=== PATIENT | female | born 1955 | race Hispanic/Latino ===

== ENCOUNTER 2017-06-18 11:15 | Inpatient (IN) | payer BC ==
[~2017-06-18] VITALS: Ht 160 cm; Wt 84.4 kg
[2017-07-12] MEDS ORDERED: VITAMIN D2 PO (11:27)
[2017-07-12] MEDS ORDERED: PROTONIX40 M2 PO (11:28)
[2017-07-12] MEDS ORDERED: MOTRIN IB200 MG PO (11:29)
[2017-07-19] VITALS (9 sets, daily range): BP systolic 115–130; BP diastolic 58–75
[2017-07-19 06:31] LABS: HEMOGLOBIN 13.8 g/dl (12.0-16.0); IMMATURE GRANULOCYTES 0.1 % (0.0-1.0); MEAN CORPUSCULAR HGB 29.3 pG CALC (26.0-32.0); MEAN CORPUSCULAR HGB CONC 33.7 g/L CALC (32.0-36.0); NEUT# 3.29 thou/uL (2.00-7.15); RED BLOOD COUNT 4.71 mill/uL (4.20-5.60); RED CELL DISTRI WIDTH 12.5 % (11.5-15.5)
[2017-07-19 06:50] LABS: ANION GAP 14 (6-22 (CALC)); BUN 14 mg/dL (7-17); BUN/CREATININE RATIO 18 (12-20 (CALC)); CARBON DIOXIDE 26 mmol/l (22-30); CHLORIDE 110 mmol/l (95-108); CREATININE 0.7 mg/dL (0.5-1.0); GFR > 60 ML/MIN (>=60 (CALC)); GFR FOR AFR.AMER. > 60 ML/MIN (>=60 (CALC)); POTASSIUM 3.7 mmol/l (3.5-5.1); SODIUM 147 mmol/l (137-146)
[2017-07-19 06:52] LABS: ACT PARTIAL THROMBO TIME 26.2 SECONDS (20.0-32.5); PROTHROMBIN TIME 10.7 SECONDS (9.0-12.5)
--- NOTE | 2017-07-19 11:48 | NUR ---
PT ARRIVED TO FLOOR AT 1130 VIA BED ACCOMPANIED BY OR STAFF X 2. PT DROWSY. RESONDS TO VERBAL STIMULI. SNORING. ANSWERS WHEN QUESTIONED. REPORTS MILD PAIN TO RIGHT KNEE, UNABLE TO GIVE A NUMBER ON THE PAIN SCALE AT THIS TIME. SCD APPLIED TO LEFT LEG. O2 @ 3L VIA NC TO MAINTAIN O2 SATS. LR INFUSING AT 100 ML/HE VIA #20 LH. IVS FREE FROM REDNESS, SWELLING. PLAN OF CARE DISCUSSED. REPORTING OF CONCERNS ENCOURAGED. FALL PRECAUTIONS REINFORCED. CALL LIGHT REVIEWED AND IN REACH. REINFORCEMENT NEEDED FOR INFORMATION R/T DROWSINESS. MULTIPLE FAMILY MEMBERS AT BEDSIDE.
--- NOTE | 2017-07-19 14:01 | NUR ---
PHYSICAL THERAPY IN W/ PT.
--- NOTE | 2017-07-19 14:52 | NUR ---
PT REPORTS NAUSEA. ZOFRAN IV ADMINISTERED. MULTIPLE FAMILY MEMBERS STILL AT BEDSIDE. PIZZA BOXES STACKED IN ROOM, REMOVAL OF FOOD TO IMPROVE NAUSEA SUGGESTED. WILL CONTINUE TO MONITOR.
--- NOTE | 2017-07-19 14:53 | NUR ---
IS AT BEDSIDE. PT REFUSING USE AT THIS TIME R/T NAUSEA.
--- NOTE | 2017-07-19 15:59 | NUR ---
PT REPORTS MODERATE RIGHT KNEE PAIN. MORPHINE IV ADMINISTERED. ONLY 1 FAMILY MEMBER AT BEDSIDE NOW. MUCH CALMER ENVIRONMENT.
--- NOTE | 2017-07-19 16:56 | NUR ---
PT VOMITED 100 ML DARK YELLOW EMESIS. INCONTINENT OF URINE AT THIS TIME. PT UP TO BSC TO FINISH EMPTYING BLADDER, 300 ML CLEAR YELLOW URINE. PT CLEANED, LINENS CHANGED. PT BACK TO BED. RIGHT LEG ELEVATED ON 2 PILLOWS. SCD TO LEFT LEG. O2 @ 3L VIA NC.
--- NOTE | 2017-07-19 19:05 | NUR ---
REPORT RECEIVED FROM MARV ALICIA;PT RESTING IN SEMI FOWLERS POSITION WITH FAMILY AT BEDSIDE;POC DISCUSSED;PT ENCOURAGED TO VERBALIZE CONCERNS;PT DENIES ANY NEEDS AT THIS TIME;ICE CHIPS PROVIDED PER REQUEST;CALL LIGHT WITHIN REACH;WILL CONTINUE TO MONITOR
--- NOTE | 2017-07-19 20:30 | NUR ---
PT RESTING IN SEMI FOWLERS POSITION COMPLAINING OF RIGHT KNEE PAIN RATING 7/10 ON THE PAIN SCALE AND REQUEST PAIN MEDICATION;MORPHINE 2MG IVP ADMINISTERED,WILL MONITOR FOR EFFECTIVENESS;#20G TO LEFT HAND INFUSING LR @ 100ML/HR,SITE APPEARS HEALTHY AND FREE FROM EDEMA;ASSESSMENT COMPLETED;RESPIRATIONS EVEN AND UNLABORED ON RA,CLEAR LUNG SOUNDS;ABDOMEN SOFT WITH X4 HYPOACTIVE BOWEL SOUNDS;STRONG PEDAL PULSES;SCD NOTED TO LEFT LEG;RIGHT LEG ELEVATED ON X2 PILLOWS,DRESSING CDI;CAP REFILL LESS THAN 3 SECONDS;I.S. AT BEDSIDE AND PT ENCOURAGED TO USE X10 PER HOUR,GOAL SET TO 1500;PT DENIES ANY OTHER NEEDS AT THIS TIME;PT ENCOURAGED TO CALL FOR ASSISTANCE IF NEEDED;CALL LIGHT WITHIN REACH;WILL CONTINUE TO MONITOR
--- NOTE | 2017-07-20 00:05 | NUR ---
PT APPEARS TO BE SLEEPING IN SUPINE POSITION WITH FAMILY AT BEDSIDE;WAKES EASILY;PT REPORTS PAIN LEVEL TO BE 3/10 ON THE PAIN SCALE;IV SITE PATENT;RIGHT LEG REMAINS ELEVATED ON X2 PILLOWS;PT DENIES ANY NEEDS AT THIS TIME;ENCOURAGED TO CALL FOR ASSISTANCE IF NEEDED;WILL CONTINUE TO MONITOR
--- NOTE | 2017-07-20 01:40 | NUR ---
PT COMPLAINS OF RIGHT KNEE PAIN RATING 7/10 ON THE PAIN SCALE AND REQUESTS PAIN MEDICATION;PT MEDICATED WITH PERCOCET 10/325MG PO 1 COMBO,WILL MONITOR FOR EFFECTIVENESS;PT AMBULATED WITH 1 PERSON ASSIST AND ASSISTED DEVICE TO BEDSIDE COMMODE AND VOIDED CLEAR/YELLOW URINE;PT RE-POSITIONED BACK INTO BED;ICE PACK AND FRESH WATER PROVIDED;WILL CONTINUE TO MONITOR
--- NOTE | 2017-07-20 04:35 | NUR ---
PT APPEARS TO BE SLEEPING WITH FAMILY AT BEDSIDE;VS BEING OBTAINED BY YANCY SWEENEY;IV FLUIDS INFUSING WELL TO LEFT HAND;PT DENIES ANY NEEDS AT THIS TIME;FALL PRECAUTIONS IN PLACE;WILL CONTINUE TO MONITOR
[2017-07-20 04:37] VITALS: BP 129/61
--- NOTE | 2017-07-20 05:45 | NUR ---
PT COMPLAINS OF RIGHT KNEE PAIN RATING 8/10 ON THE PAIN SCALE;PT MEDICATED WITH PERCOCET 10/325MG PO 1 COMBO;WILL MONITOR FOR EFFECTIVENESS
[2017-07-20 06:09] LABS: HEMATOCRIT 32.9 % (37.0-47.0); HEMOGLOBIN 11.1 g/dl (12.0-16.0)
[2017-07-20 07:31] VITALS: BP 131/76
--- NOTE | 2017-07-20 07:49 | NUR ---
REPORT RECEIVED FROM JENNIE PORTILLO. PT REPORTS 9 ON PAIN SCALE OF 0-10 TO RIGHT KNEE, UNRELIEVED BY RECENT PERCOCET PO ADMINISTRATION. MORPHINE IV ADMINISTERED. WILL MONITOR FOR EFFECTIVENESS. PLAN OF CARE DISCUSSED. FALL PRECAUTIONS REINFORCED. CALL LIGHT REVIEWED AND IN REACH. PT STATES UNDERSTANDING.
--- NOTE | 2017-07-20 10:38 | NUR ---
PT ASSISTED TO BSC. PT REPORTS SEVERE RIGHT KNEE PAIN, CRYING IN PAIN. PERCOCET 2 PO ADMINISTERED. PARVIN PT AT BEDSIDE NOW.
--- NOTE | 2017-07-20 10:59 | NUR ---
PT SITTING IN CHAIR AT BEDSIDE. REQUESTS TO GO BACK TO BED AFTER ONLY 5 MINUTES IN CHAIR. PT ENCOURAGED TO REMAIN IN CHAIR UNTIL AFTER LUNCH. PT STATES UNDERSTANDING.
--- NOTE | 2017-07-20 12:30 | NUR ---
PT VERY SLEEPY THROUGHOUT TIME IN CHAIR. UNABLE TO STAY AWAKE FOR MEAL. PT ASSISTED BACK TO BED. RIGHT LEG ELEVATED ON PILLOW. SCD TO LEFT LEG. CALL LIGHT WITHIN REACH.
--- NOTE | 2017-07-20 13:18 | NUR ---
AM: PATIENT SEEN FOR EXERCISE AND GAIT TRAINING. STATES THAT SHE DIDN'T SLEEP WELL LAST NIGHT. EX DONE WERE FOR QUAD AND GLUT SETS, ANKLE PUMPS, AA KNEE FLEXION AND AA SLR. SITTING LAQ. POOR QUAD SET. PATIENT WAS ABLE TO TRANSFER SUPINE TO SIT WITH MIN ASSIST. GAIT TRAINING DONE WITH ROLLING WALKER. SHE AMBULATED 50 FEET WITH VERBAL CUING AND MIN ASSIST. PATIENT LEFT COMFORTABLE IN THE CHAIR WITH THE CALL LIGHT AND THE TRAY TABLE NEXT TO HER. SHE ENCOURAGED TO SIT FOR A MINIMUM OF AN HOUR. SHE APPEARED TO TOLERATE TREATMENT WELL.
[2017-07-20 15:40] VITALS: BP 115/69
--- NOTE | 2017-07-20 16:15 | NUR ---
Patient found resting in bed, treatment plan explained and pt. in agreement to participate in gait training. Gait belt applied prior to doing so. Supine to sit done with min. assist x1 to right LE. Sit to stand done with light CGA x1. Pt. ambulated x45 feet using RW and CGA x1 within room. Pt. requested use of BSC of which she was assisted to, patient independent with betty care. Sit to stand from BSC done with supervision. Pt. maintained balance standing at sink for hand washing. Pt. ambulated back to bed x15 feet using RW and with CGA x1. Step to gait pattern observed. Sit to supine with assistance for bringing LE's back up to bed. Pt. left resting comfortably in bed, call light reviewed and left within reach. Pt. without complaints.
--- NOTE | 2017-07-20 17:46 | NUR ---
TORAOL IV ADMINISTERED FOR TEMP OF 100.5. WILL MONITOR FOR EFFECTIVENESS.
--- NOTE | 2017-07-20 18:27 | NUR ---
TEMP NOW 99.6
[2017-07-20 19:45] VITALS: BP 110/61
--- NOTE | 2017-07-20 20:30 | NUR ---
ENTERED ROOM PT RESTING IN BED, FAMILY MEMBER AT BEDSIDE. PT A+Ox3, EDEMA NOTED TO RLE DUE TO POD#2 TO R KNEE. DRESSING TO RLE CDI, ELEVATED ON 1 PILLOW. SCD TO LLE. IS AT BEDSIDE, DISCUSSED IS USE TO PT. ASSESSMENT COMPLETED CALL LIGHT IN REACH,CONTINUE TO MONITOR.
--- NOTE | 2017-07-20 21:30 | NUR ---
ASSISTED PT TO BATHROOM, PT AMBULATED WITH WALKER WITHOUT DIFFICULTY. PT AMBULATED IN ROOM TO SINK AND BACK TO BED, NO SIGNS OF DISTRESS NOTED. ASSISTED BACK TO BED, CALL LIGHT IN REACH,CONTINUE TO MONITOR. FAMILY MEMBER AT BEDSIDE.
--- NOTE | 2017-07-20 23:04 | NUR ---
PT UP TO BATHROOM AMBULATING WITH WALKER, NO SIGNS OF DISTRESS NOTED. RESP EVEN AND UNLABORED. C/O PAIN 12/17 2 COMBO PERCOCET GIVEN. RETURNED TO BED, CALL LIGHT IN REACH CONTINUE TO MONITOR.
[2017-07-20 23:45] VITALS: BP 107/66
--- NOTE | 2017-07-21 00:37 | NUR ---
RECHECKED TEMP, 98.1. VOICES NO NEEDS OR COMPLAINTS AT THIS TIME. CALL LIGHT IN REACH,CONTINUE TO MONITOR.
[2017-07-21 03:02] VITALS: BP 98/64
--- NOTE | 2017-07-21 04:31 | NUR ---
PT RESTING IN BED WITH EYES CLOSED, NO SIGNS OF DISTRESS NOTED, RESP EVEN AND UNLABORED. CALL LIGHT IN REACH,CONTINUE TO MONITOR.
[2017-07-21 05:28] LABS: HEMATOCRIT 31.4 % (37.0-47.0); HEMOGLOBIN 10.4 g/dl (12.0-16.0); IMMATURE GRANULOCYTES 0.5 % (0.0-1.0); MEAN CORPUSCULAR HGB 29.5 pG CALC (26.0-32.0); MEAN CORPUSCULAR HGB CONC 33.1 g/L CALC (32.0-36.0); NEUT# 5.25 thou/uL (2.00-7.15); RED BLOOD COUNT 3.53 mill/uL (4.20-5.60); RED CELL DISTRI WIDTH 12.8 % (11.5-15.5)
[2017-07-21 07:55] VITALS: BP 105/62
--- NOTE | 2017-07-21 08:05 | NUR ---
PT SITTIN UP IN CHAIR AT BEDSIDE WITH VISITOR AT SIDE, DRESSING TO R KNEE CLEAN DRY AND INTACT, PT HAS FEVER THIS AM BUT DENIES N/V, WILL MEDICATE FOR FEVER AND PAIN, PT EDUCATED REGARDING PLAN OF CARE INCLUDING DRESSING REMOVAL AND SHOWER THIS AM, INCENTIVE SPIROMETRY USAGE ENCOURGAED HOURLY, AM ASSESSMENT COMPLETED SEE INTERVENTION, IV SITE INTACT, SOME RONALD NOTED TO SURGICAL LEG, PPPB, CALL ROLLINS WITHIN REACH, SAFETY MEASURES REINFORCED, WILL CONTINUE TO MONITOR
--- NOTE | 2017-07-21 09:15 | NUR ---
DRESSING TO R KNEE REMOVED, INCISION WELL APPROXIMATED WITH DERMA MURRAY, SOME ECCHYMOSIS, EDEMA AND DISCOLORATION NOTED AT SURGICAL SITE, NO S/S OF INFECTION AND NO DRAINGE NOTED, PT ASSISTED TO SHOWER BY YANCY, TEMP CURRENTLY 100.1, WILL RE EVAL AGAIN IN 30 MIN,
--- NOTE | 2017-07-21 10:52 | NUR ---
PT RESTING IN BED, WITH VISITORS INTERMITTENLY AT BEDSIDE
--- NOTE | 2017-07-21 12:18 | NUR ---
P.T. AT BEDSIDE, PT AMBULATED IN HALLWAY WITH P.T. AND WALKER AND TOLERATED WELL, KNEE INCISION REMAINS MICHELLE WITH NO DRAINAGE AND NO S/S OF INFECTION, VISITORS AT BEDSIDE, WILL CONTINUE TO MONITOR.
[2017-07-21] MEDS ORDERED: ASPIRIN EC325 MG PO (12:21)
[2017-07-21] MEDS ORDERED: PERCOCET 10/31 COMBO PO (12:21)
--- NOTE | 2017-07-21 12:44 | NUR ---
MEDICATED FOR COMPLAINTS OF PAIN AND PLANNED D/C HOME, ALL QUESTIONS ANSWERED, CALL ROLLINS WITHIN REACH
--- NOTE | 2017-07-21 13:23 | NUR ---
Discharge instructions given. Patient verbalizes understanding of same. Discharged in stable condition via Wheelchair to Home with family. All belongings sent with pt. SCRIPTS FOR PERCOCET AND ASPIRIN SENT WIHT PATIENT.
--- NOTE | 2017-07-21 14:06 | NUR ---
PATIENT EXPRESSES DESIRE TO BE D/C'D HOME. SUPINE TO SIT WITH LEFT FOOT TO SUPPORT RIGHT LE INDEPENDENTLY. SIT TO STAND WITH V.C.'S TO RW WFOR AM TX OF GT. REQUIRED CUING FOR PROPER SEQUENCING, STEP LENGTH AND TO AVOID STANDING TOO FAR FORWARD IN WALKER. PATIENT HAS A STANDARD WALKER AT HOME. SHE WAS INSTRUCTED TO HAVE FAMILY BRING HER WALKER BEFORE D/C. PATIENT AMB 90 FEET WITH SBA AND V.C.'S. SITTING LAQ AND REVIEWED QUAD SETTING.
== END 2017-07-21 13:30 | disposition home health service (06) | DRG 470 ==
LOC: MS2 07-19 06:06
PROVIDERS: Nurse Practitioner Family; ADMIT Orthopaedic Surgery; ATTEND Orthopaedic Surgery
PROC: 0SRC0J9 Replacement of Right Knee Joint with Synthetic Substitute, Cemented, Open Approach (ICD-10-PCS; principal; 2017-07-19)
DX: M17.11 Unilateral primary osteoarthritis, right knee (principal); K21.9 Gastro-esophageal reflux disease without esophagitis

== ENCOUNTER → 2018-07-21 | Outpatient (REF) | payer BC ==
[~2018-07-21] MED LIST: ASPIRIN EC325 MG PO; MOTRIN IB200 MG PO; PERCOCET 10/31 COMBO PO; PROTONIX40 M2 PO; VITAMIN D2 PO
== END | disposition home or self-care (01) | DRG 556 ==
LOC: DI 09:12
PROVIDERS: ATTEND Orthopaedic Surgery
DX: M25.561 Pain in right knee (principal); Z47.1 Aftercare following joint replacement surgery; Z96.651 Presence of right artificial knee joint